=== PATIENT | female | born 1995 | race Caucasian/White ===

== ENCOUNTER 2021-02-20 14:33 | Inpatient (IN) | payer BC, SELFPAY ==
[~2021-02-20] VITALS: Ht 160 cm; Wt 97.5 kg
[2021-02-20] MEDS ORDERED: TERBUTALINE SULFATE 1 MG/ML VIAL SUBCUT ONE (17:15)
[2021-02-20] MEDS ORDERED: LR 1,000 ML IV ONE (17:15)
[2021-02-20 19:19] LABS: BASOPHILS # (AUTO) 0.1 K/uL (0.0-0.2); BASOPHILS % (AUTO) 0.6 % (0.0-2.0); EOSINOPHILS # (AUTO) 0.1 K/uL (0.0-0.4); EOSINOPHILS % (AUTO) 1.3 % (0.0-4.0); HEMATOCRIT 35.9 % (36-48); HEMOGLOBIN 12.5 g/dL (12.0-16.0); LYMPHOCYTES # (AUTO) 2.1 K/uL (1.0-5.5); LYMPHOCYTES % (AUTO) 19.2 % (20.5-51.5); MEAN CORPUSCULAR HEMOGLOBIN 30 pg (27-31); MEAN CORPUSCULAR HGB CONC 35 % (32-36); MEAN CORPUSCULAR VOLUME 87 fL (79.0-98.0); MONOCYTES # (AUTO) 0.7 K/uL (0.0-1.0); MONOCYTES % (AUTO) 6.1 % (1.7-9.3); NEUTROPHILS # (AUTO) 7.9 K/uL (1.8-7.7); NEUTROPHILS % (AUTO) 72.8 % (40.0-70.0); PLATELET COUNT (AUTO) 227 K/uL (130-430); RED BLOOD CELL COUNT(AUTO) 4.13 MIL/uL (4.2-6.2); RED CELL DISTRIBUTION WIDTH 13.1 % (9.0-15.0); WHITE BLOOD COUNT (AUTO) 10.8 K/uL (4.8-10.8)
[2021-02-20 19:52] VITALS: BP_SYST 134
[2021-02-20] MEDS ORDERED: DINOPROSTONE 10 MG SUPP VG ONE (20:15)
[2021-02-20] MEDS ORDERED: OXYTOCIN/0.9 % SODIUM CHLORIDE 1,000 ML IV SCH (20:15)
[2021-02-21] MEDS: LR 1,000 ML IV SCH ×3 (04:13→16:46)
[2021-02-21] MEDS: NALBUPHINE HCL 10 MG/ML AMP IVP PRN ×2 (09:50→11:56)
[2021-02-21] MEDS ORDERED: NALBUPHINE HCL 10 MG/ML AMP IM PRN (12:00)
[2021-02-21] MEDS ORDERED: fentaNYL CITRATE/PF 100 MCG/2 ML AMP ONE (14:06)
[2021-02-21] MEDS ORDERED: ROPIVACAINE HCL/PF 0.2% 200 ML ONE (14:07)
[2021-02-21] MEDS ORDERED: LR 500 ML IV ONE (15:15)
[2021-02-21] MEDS ORDERED: fentaNYL CITRATE/PF 100 MCG/2 ML AMP EP ONE (15:15)
[2021-02-21] MEDS ORDERED: ePHEDrine sulfate 50 MG/ML VIAL IVP PRN (15:15)
[2021-02-22] MEDS ORDERED: ROPIVACAINE HCL/PF 0.2% 200 ML ONE (01:44)
[2021-02-22] MEDS ORDERED: GENTAMICIN SULFATE 200 MG in NS 100 ML IV ONE (06:15)
[2021-02-22] MEDS ORDERED: AMPICILLIN SODIUM 2 GM VIAL ONE (06:17)
[2021-02-22] MEDS: AMPICILLIN SODIUM 2 GM in NS 100 ML IV SCH ×2 (06:18→11:54)
[2021-02-22] MEDS: LR 1,000 ML IV SCH ×2 (06:19→12:01)
[2021-02-22] MEDS ORDERED: CLINDAMYCIN 900 mg/50mL D5W 50 ML IV ONE ×2 (13:45→14:09)
[2021-02-22] MEDS ORDERED: ONDANSETRON HCL 4 MG/2 ML VIAL IVP PRN ×2 (14:30)
[2021-02-22] MEDS ORDERED: NALBUPHINE HCL 10 MG/ML AMP IVP PRN (14:30)
[2021-02-22] MEDS ORDERED: DIPHENHYDRAMINE INJ 50 MG/ML VIAL IVP PRN (14:30)
[2021-02-22] MEDS ORDERED: METOCLOPRAMIDE HCL 10 MG/2 ML VIAL IVP PRN (14:30)
[2021-02-22] MEDS ORDERED: MORPHINE SULFATE 10MG/10ML PF AMP EP SCH (14:30)
[2021-02-22] MEDS ORDERED: NALOXONE HCL 0.4 MG/ML AMP (NARCAN) IVP PRN ×2 (14:30)
[2021-02-22] MEDS ORDERED: fentaNYL CITRATE/PF 100 MCG/2 ML AMP IVP PRN ×2 (14:30)
[2021-02-22] MEDS ORDERED: KETOROLAC TROMETHAMINE 60 MG/2 ML VIAL IM PRN (14:30)
[2021-02-22] MEDS ORDERED: ANUSOL 1 EA SUPP.RECT (PREPARATION H) RC PRN (15:00)
[2021-02-22] MEDS ORDERED: OXYTOCIN/0.9 % SODIUM CHLORIDE 1,000 ML IV ONE (15:00)
[2021-02-22] MEDS ORDERED: LANOLIN 7 GM OINT. TP PRN (15:00)
[2021-02-22] MEDS ORDERED: HYDROcodone/ACETAMIN 5-325 MG TAB (NORCO/ VICODIN) PO PRN (15:00)
[2021-02-22] MEDS ORDERED: BISACODYL 10 MG/SUPPOSITORY RC PRN (15:00)
[2021-02-22] MEDS ORDERED: LR 1,000 ML IV SCH (15:00)
[2021-02-22] MEDS ORDERED: MORPHINE SULFATE 10MG/10ML PF AMP ONE (15:05)
[2021-02-22] MEDS ORDERED: NS IRRIG SOLN 1000 ML IR ONE (15:05)
[2021-02-22] MEDS ORDERED: LR 1,000 ML IV.SOLN IV ONE (15:05)
[2021-02-22] MEDS ORDERED: fentaNYL CITRATE/PF 100 MCG/2 ML AMP ONE (15:31)
[2021-02-22] MEDS ORDERED: GENTAMICIN 120 mg/100 mL NS 100 ML IV ONE (16:30)
[2021-02-22] MEDS ORDERED: OXYCODONE/ACETAMINOPHEN 5-325 TABLET PO PRN ×2 (17:30)
[2021-02-22] MEDS: KETOROLAC TROMETHAMINE 30 MG VIAL IVP SCH (17:31)
[2021-02-22 18:48] VITALS: BP_SYST 148
[2021-02-22] MEDS: DOCUSATE SODIUM 100 MG CAPSULE PO SCH (21:03)
[2021-02-22] MEDS: SENNOSIDES/DOCUSATE SODIUM 1 TAB TABLET(SENOKOT-S) PO SCH (21:04)
[2021-02-22] MEDS: SIMETHICONE 80 MG TAB.CHEW PO PRN (21:04)
[2021-02-22] MEDS ORDERED: DOCUSATE SODIUM 100 MG CAPSULE PO ONE (21:08)
[2021-02-23] MEDS: KETOROLAC TROMETHAMINE 30 MG VIAL IVP SCH ×3 (00:07→12:03)
[2021-02-23] MEDS: SIMETHICONE 80 MG TAB.CHEW PO PRN ×2 (06:33→12:01)
[2021-02-23 07:46] LABS: EOSINOPHILS # (AUTO) 0.2 K/uL (0.0-0.4); LYMPHOCYTES # (AUTO) 1.2 K/uL (1.0-5.5); LYMPHOCYTES % (AUTO) 8.3 % (20.5-51.5); MONOCYTES # (AUTO) 0.9 K/uL (0.0-1.0)
[2021-02-23 08:10] LABS: BASOPHILS % (AUTO) 0.1 % (0.0-2.0); EOSINOPHILS % (AUTO) 1.4 % (0.0-4.0); HEMATOCRIT 27.8 % (36-48); HEMOGLOBIN 9.2 g/dL (12.0-16.0); MEAN CORPUSCULAR HEMOGLOBIN 30 pg (27-31); MEAN CORPUSCULAR HGB CONC 33 % (32-36); MEAN CORPUSCULAR VOLUME 89 fL (79.0-98.0); MONOCYTES % (AUTO) 6.2 % (1.7-9.3); NEUTROPHILS # (AUTO) 12.1 K/uL (1.8-7.7); PLATELET COUNT (AUTO) 180 K/uL (130-430); RED BLOOD CELL COUNT(AUTO) 3.13 MIL/uL (4.2-6.2); RED CELL DISTRIBUTION WIDTH 13.4 % (9.0-15.0); WHITE BLOOD COUNT (AUTO) 14.4 K/uL (4.8-10.8)
[2021-02-23] MEDS: IBUPROFEN 600 MG TABLET PO SCH (18:11)
[2021-02-24] MEDS: IBUPROFEN 600 MG TABLET PO SCH ×3 (00:01→12:07)
[2021-02-24] MEDS: SENNOSIDES/DOCUSATE SODIUM 1 TAB TABLET(SENOKOT-S) PO SCH (00:02)
[2021-02-24] MEDS: SIMETHICONE 80 MG TAB.CHEW PO PRN (00:02)
[2021-02-24] MEDS: DOCUSATE SODIUM 100 MG CAPSULE PO SCH (09:06)
[2021-02-24] MEDS ORDERED: MEASLES,MUMPS&RUBELLA VACC/PF 12500 UNIT/0.5 ML VIAL SUBQ ONE (11:45)
[2021-02-24] MEDS ORDERED: DIPH-TET-PERTUS Vaccine 0.5 ML VIAL (ADACEL) I.M. ONE (11:45)
[2021-02-25 15:06] LABS: FTA-Ab (T PALLIDUM) Non Reactive (Non Reactive)
== END 2021-02-24 12:51 | disposition home or self-care (01) | DRG 786 ==
LOC: MERGE 14:33 → SPU 14:33
PROVIDERS: ADMIT Obstetrics & Gynecology; ATTEND Obstetrics & Gynecology
PROC: 10D00Z1 Extraction of Products of Conception, Low, Open Approach (ICD-10-PCS; principal; 2021-02-22 13:00)
DX: O41.03X0 Oligohydramnios, third trimester, not applicable or unspecified (principal); O41.1230 Chorioamnionitis, third trimester, not applicable or unspecified; O62.2 Other uterine inertia; O61.9 Failed induction of labor, unspecified; O77.0 Labor and delivery complicated by meconium in amniotic fluid; O99.344 Other mental disorders complicating childbirth; Z20.822 Contact with and (suspected) exposure to COVID-19; F31.9 Bipolar disorder, unspecified; Z3A.40 40 weeks gestation of pregnancy; Z37.0 Single live birth
CPT/HCPCS: 36415; 81002; 85025; 86592; 86780; 86886; 86900; 86901; 90715; 94760; J0290; J1580; J1885; J2274; J2300; J2590; J3010; J3490; J7120